=== PATIENT | female | born 1945 | race Caucasian/White ===

== ENCOUNTER → 2017-09-24 12:48 | Outpatient (CLI) | payer MEDICARE, OTHER, SELFPAY ==
--- NOTE | 2017-09-24 | DI.US.S_ITS ---
PROCEDURE: US ABDOMEN COMPLETE INDICATIONS: UPPER ABDOMEN PAIN TECHNIQUE: Real-time scanning was performed of the abdominal and retroperitoneal organs, with image documentation. COMPARISON: None. FINDINGS: Liver: Liver is normal in size and homogeneous in echotexture. 2 simple liver cysts are identified, one in the anteromedial left lobe measuring 21 x 23 x 30 mm and one in the anterior superior right lobe measuring 11 mm. Gallbladder: Gallbladder is clear with normal wall thickness. Biliary ducts: Intrahepatic bile ducts are non-dilated. Extrahepatic bile duct caliber measures 5 mm. Normal is 6-7 mm or less in diameter, or 10 mm or less post-cholecystectomy. Pancreas: Visualized portions of the pancreas are sonographically normal. Tail is obscured. Spleen: Spleen is normal in size and homogeneous in echotexture. Kidneys: Kidneys are normal in size and echotexture. Right kidney measures 9.6 cm long; left kidney measures 11.5 cm long. No hydronephrosis or nephrolithiasis. No solid masses. Aorta: Visualized aorta is normal in caliber at less than 3 cm. Iliacs: Proximal common iliac arteries are normal in caliber at less than 2.5 cm. IVC: Nonvisualized Miscellaneous: No free abdominal fluid. IMPRESSION: 1. No acute abnormality. 2 simple cysts in the liver. Tail of pancreas and inferior vena cava obscured by bowel gas. Dictated by: Bhaskar Irvin M.D. on 09/24/2017 at 14:15 Approved by: Bhaskar Irvin M.D. on 09/24/2017 at 14:18
== END ==
PROVIDERS: PCP Family Medicine; Visit Provider Family Medicine
DX: R10.10 Upper abdominal pain, unspecified (principal); K76.9 Liver disease, unspecified
CPT/HCPCS: 76700

== ENCOUNTER → 2019-01-30 11:39 | Outpatient (CLI) | payer MEDICARE, OTHER, SELFPAY ==
--- NOTE | 2019-01-30 | DI.US.S_ITS ---
PROCEDURE: US THYROID INDICATIONS: OTHER SPECIFIED DISORDERS OF THYROID TECHNIQUE: Real-time scanning was performed of the thyroid gland, with image documentation. COMPARISON: None. FINDINGS: Right: Thyroid lobe measures 4 x 1.2 x 1.2 cm. Left: Thyroid lobe measures 3.3 x 0.9 x 1.1 cm, and is homogenous in echotexture. Isthmus: 3 mm thick. Nodule number: 1 Location: Right mid thyroid laterally Size: 0.6 x 0.4 0.3 cm. Composition: Cystic and solid Echogenicity: Hypoechoic Shape: wider than tall. Margins: Smooth Echogenic foci: Potential punctate calcifications, as on image 11. Total points: 7 ACR TI-RADS category: 5, highly suspicious. Annual followup is recommended for 5 years. IMPRESSION: There is a 6 mm nodule seen involving the right thyroid, for which followup is recommended in one year. ACR TI-RADS definitions and recommendations: TI-RADS 1 (benign): 0 points. FNA not needed. TI-RADS 2 (not suspicious): 2 points. FNA not needed. TI-RADS 3 (mildly suspicious): 3 points. * FNA if 2.5 cm or larger, follow up if 1.5 cm or larger (at 1, 3, and 5 years). TI-RADS 4 (moderately suspicious): 4-6 points. * FNA if 1.5 cm or larger, follow up if 1 cm or larger (at 1, 2, 3, and 5 years). TI-RADS 5 (highly suspicious): 7 points or more. * FNA if 1 cm or larger, follow up if 0.5 cm or larger (every year for 5 years). Dictated by: George Irwin M.D. on 01/30/2019 at 13:05 Approved by: George Irwin M.D. on 01/30/2019 at 13:08
== END ==
PROVIDERS: PCP Family Medicine; Visit Provider Family Medicine
DX: E04.1 Nontoxic single thyroid nodule (principal)
CPT/HCPCS: 76536

== ENCOUNTER → 2020-09-11 11:06 | Outpatient (CLI) | payer MEDICARE, OTHER, SELFPAY ==
[2020-09-11 13:26] LABS: COVID-19 CEPHEID PCR (VTM/NP) Negative (Negative)
== END ==
PROVIDERS: PCP Family Medicine; Visit Provider Physician Assistant
DX: Z20.822 Contact with and (suspected) exposure to COVID-19 (principal)
CPT/HCPCS: C9803; U0003

== ENCOUNTER → 2020-10-25 14:01 | Outpatient (CLI) | payer MEDICARE, OTHER, SELFPAY | PROVIDERS: PCP Family Medicine; Referring Provider Internal Medicine Medical Oncology; Visit Provider Internal Medicine Medical Oncology | DX: C50.912 Malignant neoplasm of unspecified site of left female breast (principal); Z17.0 Estrogen receptor positive status [ER+]; Z78.0 Asymptomatic menopausal state; M06.9 Rheumatoid arthritis, unspecified; M45.9 Ankylosing spondylitis of unspecified sites in spine; Z79.818 Long term (current) use of other agents affecting estrogen receptors and estrogen levels; Z90.722 Acquired absence of ovaries, bilateral; Z82.62 Family history of osteoporosis | CPT/HCPCS: 77080 ==

== ENCOUNTER → 2020-11-23 11:22 | Outpatient (CLI) | payer MEDICARE, OTHER, SELFPAY ==
[2020-11-23 20:24] LABS: Alanine Aminotransferase 18 IU/L (<35); Albumin 3.7 g/dL (3.5-5.0); Albumin Globulin Ratio 1.3 (1.0-2.8); Alkaline Phosphatase 84 U/L (38-126); Aspartate Aminotransferase 26 IU/L (14-36); BUN Creatinine Ratio 19.7 (6-22); Bilirubin Total 0.7 mg/dL (0.2-1.3); Blood Urea Nitrogen 13 mg/dL (7-17); Calcium 9.3 mg/dL (8.4-10.2); Carbon Dioxide 30 mmol/L (22-32); Chloride 102 mmol/L (98-107); Cholesterol 147 mg/dL (140-199); Estimated Glomerular Filt Rate > 60.0 mL/min (>60); Globulin 2.8 g/dL (1.7-4.1); Glucose 107 mg/dL (80-110); HDL Cholesterol 65 mg/dL (40-60); HEMOLYSIS 29 (0-50); LDL Cholesterol Calculated 70 mg/dL (<100); Potassium 4.1 mmol/L (3.4-5.1); Sodium 139 mmol/L (137-145); Total Protein 6.5 g/dL (6.3-8.2); Triglycerides 59 mg/dL (35-150)
== END ==
PROVIDERS: PCP Family Medicine; Visit Provider Physician Assistant
DX: E78.5 Hyperlipidemia, unspecified (principal); I10 Essential (primary) hypertension; E87.6 Hypokalemia
CPT/HCPCS: 80053; 80061

== ENCOUNTER → 2020-12-16 12:28 | Outpatient (CLI) | payer MEDICARE, OTHER, SELFPAY ==
[2020-12-16 21:23] LABS: COVID19 - ORCAS (NP or Nasal) Negative (Negative)
== END ==
PROVIDERS: PCP Family Medicine; Referring Provider Family Medicine; Visit Provider Family Medicine
DX: R19.7 Diarrhea, unspecified (principal); R50.9 Fever, unspecified; Z20.822 Contact with and (suspected) exposure to COVID-19
CPT/HCPCS: U0003

== ENCOUNTER → 2021-02-11 13:32 | Outpatient (CLI) | payer MEDICARE, OTHER, SELFPAY ==
[2021-02-11 20:07] LABS: Add Manual Diff / Slide Review NO; Basophils Absolute Auto 100 /uL (0-100); Basophils Percent Auto 0.9 % (0-2); Eosinophils Absolute Auto 100 /uL (0-450); Eosinophils Percent Auto 1.5 % (2-4); Hematocrit 45.2 % (36-46); Hemoglobin 14.7 g/dL (12.0-16.0); Lymphocytes Absolute Auto 1800 /uL (1100-4500); Lymphocytes Percent Auto 29.1 % (25-40); Mean Corpuscular HGB Conc 32.5 % (30-36); Mean Corpuscular Hemoglobin 28.6 PG (26-34); Monocytes Absolute Auto 400 /uL (0-900); Monocytes Percent Auto 6.4 % (3-14); Neutrophils Absolute Auto 3900 /uL (1500-7000); Neutrophils Percent Auto 62.1 % (50-75); Platelet Count 239 X10^3/uL (150-400); Red Blood Cell Count 5.14 X10^6/uL (4.0-5.2); Red Cell Distribution Width 15.2 % (11.6-14.8); White Blood Cell Count 6.3 X10^3/uL (4.5-11.0)
[2021-02-11 20:21] LABS: Alanine Aminotransferase 15 IU/L (<35); Albumin Globulin Ratio 1.4 (1.0-2.8); Alkaline Phosphatase 94 U/L (38-126); Aspartate Aminotransferase 24 IU/L (14-36); BUN Creatinine Ratio 22.2 (6-22); Bilirubin Total 0.5 mg/dL (0.2-1.3); Blood Urea Nitrogen 16 mg/dL (7-17); C-Reactive Protein Quant < 0.5 mg/dL (<1.0); Calcium 9.6 mg/dL (8.4-10.2); Carbon Dioxide 29 mmol/L (22-32); Chloride 100 mmol/L (98-107); Estimated Glomerular Filt Rate > 60.0 mL/min (>60); Globulin 2.8 g/dL (1.7-4.1); Glucose 106 mg/dL (80-110); HEMOLYSIS < 15 (0-50); Sodium 138 mmol/L (137-145); Total Protein 6.8 g/dL (6.3-8.2)
[2021-02-11 20:28] LABS: Erythrocyte Sedimentation Rate 2 MM/HR (0-20)
== END ==
PROVIDERS: PCP Family Medicine; Visit Provider Internal Medicine Rheumatology
DX: M06.09 Rheumatoid arthritis without rheumatoid factor, multiple sites (principal)
CPT/HCPCS: 80053; 85025; 85651; 86140

== ENCOUNTER → 2021-07-25 12:41 | Outpatient (CLI) | payer MEDICARE, OTHER, SELFPAY ==
--- NOTE | 2021-07-25 12:44 | DI.MRI.S_ITS ---
PROCEDURE: MR SHOULDER LT WO CON INDICATIONS: Progressive bilateral shoulder pain adhesive capsulitis TECHNIQUE: Noncontrast oblique coronal T2 fast spin echo with fat saturation, oblique sagittal T1 spin echo and T2 fast spin echo with fat saturation, axial T1 spin echo and T2 fast spin echo with fat saturation through the shoulder. COMPARISON: [facility] ([place]), CR, XR SHOULDER LT MIN 2V, 07/15/2021, 12:26. FINDINGS: Image quality: Excellent. Rotator cuff: Moderate to severe supraspinatus and infraspinatus tendinosis with multiple small foci of low grade intrasubstance tearing. The teres minor and subscapularis tendons are intact there is no significant rotator cuff muscle atrophy. Bones and bursae: No acute trabecular bone injury. Small chronic traction cystic changes are seen in the posterosuperior humeral head. Mild cartilage thinning is seen in the glenohumeral joint. Moderate degenerative changes are seen in the acromioclavicular joint with subchondral cystic changes and small marginal osteophytes. There is a small subacromial/subdeltoid bursal effusion. A paucity of glenohumeral joint fluid is seen. Capsule and soft tissues: The glenoid labrum appears mildly diminutive and irregular, most likely secondary to chronic degeneration and degenerative tearing. Moderate tendinosis of the proximal biceps long head tendon. There is effacement of the normal fat signal in the rotator interval. The inferior glenohumeral ligament is mildly thickened. IMPRESSION: 1. Moderate to severe supraspinatus and infraspinatus tendinosis with multiple small foci of low grade intrasubstance tearing at the distal insertions. 2. Diffuse labral degeneration and chronic degenerative tearing. 3. Moderate biceps long head tendinosis. 4. Small subacromial/subdeltoid bursal effusion or bursitis. 5. Effacement of the rotator interval fat and mild thickening of the inferior glenohumeral ligament are nonspecific, but can be seen in the setting of the clinical syndrome of adhesive capsulitis. Dictated by: Dallas Higgins M.D. on 07/25/2021 at 16:02 Approved by: Dallas Higgins M.D. on 07/25/2021 at 16:09
--- NOTE | 2021-07-25 12:44 | DI.MRI.S_ITS ---
PROCEDURE: MR SHOULDER RT WO CON INDICATIONS: Bilateral shoulder adhesive capsulitis TECHNIQUE: Noncontrast oblique coronal T2 fast spin echo with fat saturation, oblique sagittal T1 spin echo and T2 fast spin echo with fat saturation, axial T1 spin echo and T2 fast spin echo with fat saturation through the shoulder. COMPARISON: [facility] ([place]), CR, XR SHOULDER RT MIN 2V, 07/15/2021, 12:12. FINDINGS: Image quality: Excellent. Rotator cuff: There is mild to moderate supraspinatus and infraspinatus tendinosis. Superimposed high-grade intrasubstance and likely bursal surface tearing of the distal infraspinatus tendon is seen measuring 1.1 cm in anterior-posterior dimension. A few articular sided fibers appear to remain in continuity. The teres minor tendon is intact. Mild subscapularis tendinosis. There is no significant atrophy of the rotator cuff musculature. Bones and bursae: No acute trabecular bone injury. Chronic traction cystic changes are seen at the posterosuperior humeral head. No definite focal cartilage defect is seen in the glenohumeral joint, although there is a paucity of glenohumeral joint fluid. Moderate degenerative changes are seen at the acromioclavicular joint with subchondral cystic changes and small marginal osteophytes. A small subacromial/subdeltoid bursal effusion or bursal thickening is seen. Capsule and soft tissues: Small nondisplaced tear at the anteroinferior labrum with a 3 mm paralabral cyst. The labrum otherwise appears to be intact. The proximal biceps long head tendon is intact. There is partial effacement of the normal fat in the rotator interval. The anterior band of the inferior glenohumeral ligament is borderline in thickness. IMPRESSION: 1. High-grade partial intrasubstance and bursal surface tearing of the infraspinatus tendon at its footprint superimposed on mild to moderate infraspinatus and supraspinatus tendinosis. The tear measures approximately 1.1 cm in anterior-posterior dimension. A few attenuated articular sided fibers appear to remain in continuity. 2. Mild subscapularis tendinosis. 3. Small nondisplaced tear at the anteroinferior labrum with a 3 mm paralabral cyst. 4. Moderate acromioclavicular joint osteoarthrosis. 5. Small subacromial/subdeltoid bursal effusion or bursitis. 6. Mild partial effacement of the rotator interval fat and borderline thickening of the inferior glenohumeral ligament with a paucity of glenohumeral joint fluid are nonspecific findings, but can be seen in the setting of the clinical syndrome of adhesive capsulitis. Dictated by: Dallas Higgins M.D. on 07/25/2021 at 15:56 Approved by: Dallas Higgins M.D. on 07/25/2021 at 16:02
--- NOTE | 2021-07-25 12:44 | DI.MRI.S_ITS ---
PROCEDURE: MR LUMBAR SPINE WO CON INDICATIONS: Progressive localized pain and discomfort with radiculopathy TECHNIQUE: Noncontrast sagittal T1 spin echo and T2 fast echo, sagittal STIR, axial T1 and T2 fast spin echo through the lumbar spine. In cases with scoliosis, additional coronal T2 fast spin echo may be performed. COMPARISON: [facility], MR, L-SPINE WITHOUT CONTRAST, 09/19/2007, 12:49. [facility], MR, L-SPINE WITHOUT CONTRAST, 08/08/2017, 10:47. [facility] ([place]), CR, XR LUMBAR SPINE 2-3V, 07/15/2021, 12:12. FINDINGS: Image quality: Excellent. Alignment and Curvature: There is [id number] dextroconvex lumbar scoliosis. There is minimal retrolisthesis seen at L1-L2, L2-L3, L3-L4, and L5-S1. Bone Marrow: Marrow is of normal overall signal. No acute vertebral body compression fractures. Anterior wedge deformity is seen involving L1, with approximately 50% loss of height, which appears progressed compared to 2018, yet without acute features. Spinal Cord: Conus medullaris terminates at the L1 level. Visualized cord demonstrates normal signal and size. Paraspinous Soft Tissues: No paravertebral masses. T11-T12: Moderate loss of disc height is seen on the right side. There is loss of disc signal. Mild to moderate disc bulge is seen, with a central/right disc protrusion, as on series 6, image 3. Mild to moderate central canal narrowing is seen. There is moderate to severe right-sided and moderate left-sided neural foraminal narrowing. These imaging findings have progressed compared to the prior study. T12-L1: Mild loss of disc height is seen. Loss of disc signal is seen. Minimal to mild disc bulge is seen at this level. There is moderate left-sided and no significant right-sided neural foraminal narrowing. Minimal central canal narrowing is seen. When comparison is made with the prior images, these findings are similar. L1-L2: Moderate loss of disc height is seen. Loss of disc signal is seen. Moderate generalized disc bulge is seen. Mild to moderate facet hypertrophy is seen. There is at least moderate left-sided and mild right-sided neural foraminal narrowing. Mild central canal narrowing is seen. When comparison is made with the prior images, these findings are similar. L2-L3: Moderate loss of disc height is seen. Loss of disc signal is seen. Reactive marrow endplate changes are seen, which are hyperintense on T1-weighted and T2-weighted imaging and most consistent with fatty metaplasia (Modic type II changes). Mild to moderate disc bulge is seen. Mild to moderate facet hypertrophy can be seen at this level. Moderate bilateral neural foraminal narrowing can be seen, right worse than left. Mild to moderate central canal narrowing is seen. When comparison is made with the prior images, these findings are similar. L3-L4: At least moderate loss of disc height and disc signal can be seen. Reactive marrow endplate changes are seen, which are hyperintense on T1-weighted and T2-weighted imaging and most consistent with fatty metaplasia (Modic type II changes). Mild to moderate disc bulge is seen, which is eccentric to the right. Mild to moderate facet hypertrophy is seen. At least moderate bilateral neural foraminal narrowing can be seen. Mild to moderate central canal narrowing is seen. When comparison is made with the prior images, these findings are similar. L4-L5: The disc height is well-preserved. Loss of disc signal is seen at this level. Mild to moderate disc bulge is seen, which is eccentric to the right. There is at least moderate right-sided and mild left-sided facet hypertrophy. There is at least moderate right-sided and mild left-sided neural foraminal narrowing. No significant central canal narrowing is seen. When comparison is made with the prior images, these findings are similar. L5-S1: Moderate loss of disc height is seen. Loss of disc signal is seen. Mild to moderate disc bulge is seen, which is eccentric to the right. Mild to moderate facet hypertrophy is seen. There is moderate to severe right-sided neural foraminal narrowing, with a degree of compression seen upon the exiting right L5 nerve root. Moderate left-sided neural foraminal narrowing is seen. Minimal central canal narrowing is seen. These imaging findings have progressed compared to the prior study. 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 IMPRESSION: Multiple levels of lumbar spine degenerative change are seen, which are progressed at T11-T12 and L5-S1 compared to 2018. Dictated by: George Irwin M.D. on 07/25/2021 at 16:14 Approved by: George Irwin M.D. on 07/25/2021 at 16:22
== END ==
PROVIDERS: PCP Family Medicine; Referring Provider Family Medicine; Visit Provider Family Medicine
DX: M75.02 Adhesive capsulitis of left shoulder (principal); M75.112 Incomplete rotator cuff tear or rupture of left shoulder, not specified as traumatic; M75.111 Incomplete rotator cuff tear or rupture of right shoulder, not specified as traumatic; M19.011 Primary osteoarthritis, right shoulder; M75.01 Adhesive capsulitis of right shoulder; S43.491A Other sprain of right shoulder joint, initial encounter; M47.24 Other spondylosis with radiculopathy, thoracic region; M47.27 Other spondylosis with radiculopathy, lumbosacral region; M47.26 Other spondylosis with radiculopathy, lumbar region; M25.512 Pain in left shoulder; M25.511 Pain in right shoulder; G89.29 Other chronic pain
CPT/HCPCS: 72148; 73221

== ENCOUNTER → 2022-03-30 13:48 | Outpatient (CLI) | payer MEDICARE, OTHER, SELFPAY ==
[2022-03-30 20:00] LABS: Add Manual Diff / Slide Review NO; Basophils Absolute Auto 100 /uL (0-100); Basophils Percent Auto 0.7 % (0-2); Eosinophils Absolute Auto 100 /uL (0-450); Eosinophils Percent Auto 0.5 % (2-4); Hematocrit 47.4 % (36-46); Lymphocytes Absolute Auto 1900 /uL (1100-4500); Lymphocytes Percent Auto 16.8 % (25-40); Mean Corpuscular HGB Conc 33.8 % (30-36); Mean Corpuscular Hemoglobin 29.8 PG (26-34); Mean Corpuscular Volume 88.3 fL (80-100); Monocytes Absolute Auto 600 /uL (0-900); Monocytes Percent Auto 5.7 % (3-14); Neutrophils Absolute Auto 8700 /uL (1500-7000); Neutrophils Percent Auto 76.3 % (50-75); Platelet Count 240 X10^3/uL (150-400); Red Blood Cell Count 5.37 X10^6/uL (4.0-5.2); Red Cell Distribution Width 14.9 % (11.6-14.8); White Blood Cell Count 11.4 X10^3/uL (4.5-11.0)
[2022-03-30 20:08] LABS: Alanine Aminotransferase 22 IU/L (<35); Albumin 4.8 g/dL (3.5-5.0); Albumin Globulin Ratio 1.3 (1.0-2.8); Alkaline Phosphatase 102 U/L (38-126); Aspartate Aminotransferase 29 IU/L (14-36); BUN Creatinine Ratio 25.9 (6-22); Bilirubin Total 0.8 mg/dL (0.2-1.3); Blood Urea Nitrogen 14 mg/dL (7-17); C-Reactive Protein Quant < 0.5 mg/dL (<1.0); Calcium 9.3 mg/dL (8.4-10.2); Carbon Dioxide 28 mmol/L (22-32); Chloride 97 mmol/L (98-107); Estimated Glomerular Filt Rate > 60 mL/min (>60); Globulin 3.6 g/dL (1.7-4.1); Glucose 106 mg/dL (80-110); Potassium 4.4 mmol/L (3.4-5.1); Sodium 136 mmol/L (137-145); Total Protein 8.4 g/dL (6.3-8.2)
[2022-03-30 20:30] LABS: HEMOLYSIS 74 (0-50)
[2022-03-30 21:01] LABS: Erythrocyte Sedimentation Rate 2 MM/HR (0-20)
== END ==
PROVIDERS: PCP Family Medicine; Visit Provider Physician Assistant
DX: M05.79 Rheumatoid arthritis with rheumatoid factor of multiple sites without organ or systems involvement (principal)
CPT/HCPCS: 80053; 85025; 85651; 86140

== ENCOUNTER → 2022-12-13 13:50 | Outpatient (CLI) | payer MEDICARE, OTHER, SELFPAY ==
[2022-12-13 19:48] LABS: BUN Creatinine Ratio 24.6 (6-22); Blood Urea Nitrogen 14 mg/dL (7-17); Calcium 8.7 mg/dL (8.4-10.2); Carbon Dioxide 28 mmol/L (22-32); Chloride 100 mmol/L (98-107); Cholesterol 141 mg/dL (140-199); Estimated Glomerular Filt Rate > 60 mL/min (>60); Glucose 100 mg/dL (80-110); HDL Cholesterol 54 mg/dL (40-60); HEMOLYSIS 29 (0-50); LDL Cholesterol Calculated 69 mg/dL (<100); Sodium 136 mmol/L (137-145); Triglycerides 89 mg/dL (35-150)
[2022-12-13 19:54] LABS: Add Manual Diff / Slide Review NO; Basophils Absolute Auto 0 /uL (0-100); Basophils Percent Auto 0.2 % (0-2); Eosinophils Absolute Auto 100 /uL (0-450); Eosinophils Percent Auto 1.5 % (2-4); Hematocrit 41.8 % (36-46); Hemoglobin 14.1 g/dL (12.0-16.0); Lymphocytes Absolute Auto 1300 /uL (1100-4500); Lymphocytes Percent Auto 19.8 % (25-40); Mean Corpuscular HGB Conc 33.8 % (30-36); Mean Corpuscular Hemoglobin 29.3 PG (26-34); Mean Corpuscular Volume 86.7 fL (80-100); Monocytes Absolute Auto 500 /uL (0-900); Monocytes Percent Auto 7.7 % (3-14); Neutrophils Absolute Auto 4500 /uL (1500-7000); Neutrophils Percent Auto 70.8 % (50-75); Platelet Count 244 X10^3/uL (150-400); Red Blood Cell Count 4.82 X10^6/uL (4.0-5.2); Red Cell Distribution Width 15.4 % (11.6-14.8); White Blood Cell Count 6.3 X10^3/uL (4.5-11.0)
[2022-12-13 20:15] LABS: TSH w/ Reflex to FT4 0.91 uIU/mL (0.47-4.68)
== END ==
PROVIDERS: PCP Family Medicine; Visit Provider Family Medicine
DX: E78.5 Hyperlipidemia, unspecified (principal); Z68.35 Body mass index [BMI] 35.0-35.9, adult; K52.831 Collagenous colitis; I10 Essential (primary) hypertension; M06.9 Rheumatoid arthritis, unspecified
CPT/HCPCS: 80048; 80061; 84443; 85025

== ENCOUNTER → 2023-01-03 10:13 | Outpatient (CLI) | payer MEDICARE, OTHER, SELFPAY ==
--- NOTE | 2023-01-03 10:15 | DI.RAD.S_ITS ---
Bone Density Report Name: ROSIO VICENTE Age: 77 Sex: Female Ethnicity: White Date of : 1945 Indication: postmenopausal; screening for osteoporosis; prior fracture; Referring Provider: JON CASTILLO Study: Bone densitometry was performed. Exam Date: January 03, 2023 Accession number: [id number] Bone Density: Region BMD T-score Z-score Classification AP Spine(L1, L2, L3) 1.335 2.9 5.3 Normal Femoral Neck (Left) 0.816 -0.3 1.9 Normal Total Hip (Left) 0.982 0.3 2.2 Normal Femoral Neck (Right) 0.821 -0.3 1.9 Normal Total Hip (Right) 0.987 0.4 2.3 Normal Total Hip Mean 0.984 0.4 2.3 Normal World Health Organization criteria for BMD impression classify patients as: Normal (T-score at or above -1.0), Osteopenia (T-score between -1.0 and -2.5), or Osteoporosis (T-score at or below -2.5). 10-year Fracture Risk: FRAX not reported because: All T-scores for Spine Total, Hip Total, Femoral Neck at or above -1.0 Prior hip or vertebral fracture Previous Exams: -- Region Exam Age BMD T-score BMD Change BMD Change Date g/cm2 vs Baseline vs Previous -- AP Spine (L1-L3) 01/03/2023 77 1.335 2.9 -0.154 (-10.3%)# -0.154 (-10.3%)# 10/25/2020 75 1.489 4.3 Total Hip(Left) 01/03/2023 77 0.982 0.3 -0.040 (-3.9%)# -0.040 (-3.9%)# 10/25/2020 75 1.022 0.7 Total Hip(Right) 01/03/2023 77 0.987 0.4 -0.030 (-3.0%)# -0.030 (-3.0%)# 10/25/2020 75 1.017 0.6 -- *Denotes significance at 95% confidence level, LSC for AP Spine = 0.022 g/cm2, LSC for Total Hip = 0.027 g/cm2 # Denotes dissimilar scan types or analysis methods Impression: The patient has normal bone mass. The patient has risk factors, including: previous fracture. No significant bone loss was observed. Discussion: INCREASED RISK OF FRACTURE DUE TO HISTORY OF FRACTURE. The patient's previous fracture puts the patient at high risk of a future fracture. In untreated patients, the risk of osteoporotic fracture increases approximately two-fold for each 1.0 SD decrease in T-score. Low bone density is not the only risk factor for fracture; also consider factors such as patient's age, frailty or poor health, risk of falling, risk of injury, previous osteoporotic fracture, family history of osteoporosis, cigarette smoking, low body weight, etc. Not everyone with a low trauma fracture has osteoporosis; osteomalacia and other metabolic bone disorders should also be considered. Patients who have osteoporosis should be evaluated for specific diseases and conditions (secondary causes) that may cause or contribute to bone loss and fracture risk. National Osteoporosis Foundation (NOF) recommends pharmacologic intervention for patients with a prior hip or vertebral fracture regardless of BMD T-score. The patient should follow a healthful lifestyle (good nutrition with adequate calcium and vitamin D, and appropriate weight-bearing exercise). Follow-Up: Consider a repeat BMD and Vertebral Fracture Assessment (VFA) exam in 2 years or sooner if medically necessary, to reassess this patient's status. Reported by: MEHDI JOHNSTON MD on 01/03/2023 10:45:00 AM.
--- NOTE | 2023-01-03 10:19 | DI.CT.S_ITS ---
PROCEDURE: CT HEAD/BRAIN WO CON INDICATIONS: Head injury with persistent AKHTAR and dizziness TECHNIQUE: Noncontrast 4.5 mm thick angled axial sections acquired from the foramen magnum to the vertex, with coronal and sagittal reformats. For radiation dose reduction, the following was used: automated exposure control, adjustment of mA and/or kV according to patient size. COMPARISON: None. FINDINGS: Image quality: Excellent. CSF spaces: Basal cisterns are patent. No extra-axial fluid collections. The ventricles are symmetric in size and shape. Brain: No intracranial bleeds or masses. There is cerebral volume loss for age, with resultant ventricular and sulcal prominence. There are periventricular and deep white matter chronic small vessel ischemic changes. There is intracranial internal carotid artery atherosclerosis. Skull and face: Calvarium and visualized facial bones appear intact, without suspicious lesions. Sinuses: Visualized sinuses and mastoids are clear. IMPRESSION: Unremarkable noncontrast head CT for age, without findings of acute intracranial hemorrhage or other acute intracranial abnormality. Dictated by: George Irwin M.D. on 01/03/2023 at 9:44 Approved by: George Irwin M.D. on 01/03/2023 at 9:45
== END ==
PROVIDERS: PCP Family Medicine; Referring Provider Family Medicine; Visit Provider Family Medicine
DX: R51.9 Headache, unspecified; I65.29 Occlusion and stenosis of unspecified carotid artery; R42 Dizziness and giddiness; R26.89 Other abnormalities of gait and mobility; M81.0 Age-related osteoporosis without current pathological fracture; Z78.0 Asymptomatic menopausal state; S32.029A Unspecified fracture of second lumbar vertebra, initial encounter for closed fracture; S32.019A Unspecified fracture of first lumbar vertebra, initial encounter for closed fracture; M06.9 Rheumatoid arthritis, unspecified
CPT/HCPCS: 70450; 77080

== ENCOUNTER → 2023-03-29 10:52 | Outpatient (CLI) | payer MEDICARE, OTHER, SELFPAY ==
--- NOTE | 2023-03-29 10:56 | DI.MRI.S_ITS ---
PROCEDURE: MR LUMBAR SPINE WO CON INDICATIONS: scoliosis back pain with radiation TECHNIQUE: Noncontrast sagittal T1 spin echo and T2 fast echo, sagittal STIR, and T2 fast spin echo through the lumbar spine. In cases with scoliosis, additional coronal T2 fast spin echo may be performed. COMPARISON: [facility], MR, MR LUMBAR SPINE WO CON, 07/25/2021, 13:59. FINDINGS: Image quality: Excellent. Alignment and Curvature: There is rightward scoliotic curvature with apex at L2. Multilevel trace retrolisthesis is present. Bone Marrow: Marrow is of normal overall signal. No acute vertebral body compression fractures. Unchanged L1 compression deformity. Spinal Cord: Conus medullaris terminates at the L1-2 level. Visualized cord demonstrates normal signal and size. Tarlov cysts are noted at the level the sacral spine. Paraspinous Soft Tissues: No paravertebral masses. Discs: Multilevel moderate to severe disc desiccation is present. T12-L1: Mild disc bulge with right posterior paracentral protrusion. Mild to moderate spinal stenosis. Moderate bilateral foraminal narrowing with facet and ligamentum flavum hypertrophy. No interval change. L1-L2: Mild disc bulge with superimposed left posterior paracentral protrusion slightly more prominent. Mild spinal stenosis. Moderate left and mild right foraminal narrowing with facet and ligamentum flavum hypertrophy, stable. L2-L3: Mild disc bulge with [id number]-[id number] spinal stenosis. Moderate bilateral foraminal narrowing, right greater than left with facet and ligamentum flavum hypertrophy. No interval change. L3-L4: Mild disc bulge with nvlb-gh-rophzghk spinal stenosis. There is moderate bilateral foraminal narrowing with facet and ligamentum flavum hypertrophy. Overall appearance is stable compared to prior exam. L4-L5: Mild disc bulge with out spinal stenosis. Moderate to severe right and mild left foraminal narrowing with facet and ligamentum flavum hypertrophy. No interval change. L5-S1: Mild disc bulge with minimal spinal stenosis. Severe right and moderate left foraminal narrowing with facet and ligamentum flavum hypertrophy slightly progressive on the right. There is mild compression of the exiting right L5 nerve roots, minimally progressive. IMPRESSION: Multilevel degenerative changes with slight interval progression as above. Most prominent foraminal narrowing is at L5-S1 with flattening of the exiting right L5 nerve root secondary to facet/ligamentum flavum arthropathy. Dictated by: Do Goode M.D. on 03/29/2023 at 15:42 Approved by: Do Goode M.D. on 03/29/2023 at 15:52
== END ==
PROVIDERS: PCP Family Medicine; Referring Provider Family Medicine; Visit Provider Family Medicine
DX: M54.41 Lumbago with sciatica, right side (principal); M54.42 Lumbago with sciatica, left side; M47.816 Spondylosis without myelopathy or radiculopathy, lumbar region; M47.817 Spondylosis without myelopathy or radiculopathy, lumbosacral region; M48.07 Spinal stenosis, lumbosacral region; M41.9 Scoliosis, unspecified; G89.29 Other chronic pain
CPT/HCPCS: 72148

== ENCOUNTER → 2023-06-26 11:01 | Outpatient (CLI) | payer MEDICARE, OTHER, SELFPAY ==
[2023-06-26 19:29] LABS: HEMOLYSIS < 15 (0-50); Iron 112 ug/dL (37-170)
[2023-06-26 19:48] LABS: Percent Iron Saturation 28 % (15-50); Total Iron Binding Capacity 395 ug/dL (265-497); Transferrin 324 mg/dL (206-381)
== END ==
PROVIDERS: PCP Family Medicine; Visit Provider Family Medicine
DX: G25.81 Restless legs syndrome (principal)
CPT/HCPCS: 83540; 83550

== ENCOUNTER → 2023-10-18 11:23 | Outpatient (CLI) | payer MEDICARE, OTHER, SELFPAY ==
--- NOTE | 2023-10-18 11:25 | DI.MRI.S_ITS ---
PROCEDURE: MR HEAD/BRAIN WO/W CON INDICATIONS: imbalance falls concussion TECHNIQUE: Noncontrast axial T1 spin echo, axial T2 fast spin echo, sagittal and axial FLAIR, coronal T2 fast spin echo, axial gradient echo, axial diffusion and ADC through the brain. After the administration of contrast, axial and coronal and sagittal T1 spin echo with fat saturation through the brain. COMPARISON: None. FINDINGS: Image quality: Excellent. CSF spaces: Basal cisterns are patent. No extra-axial fluid collections. Ventricles are normal in size and shape. Brain: No midline shift. No intracranial bleeds or masses. No abnormal intracranial enhancement. There is cerebral volume loss for age. There is periventricular white matter chronic small vessel ischemic change. The brainstem appears normal. Diffusion-weighted images demonstrate no acute infarct. No chronic ischemic insults. Normal intravascular flow voids are present. Skull and face: Calvarial marrow is normal in signal. Orbits appear normal. Note is made of bilateral lens replacements. Sinuses: Sinuses and mastoids appear clear. IMPRESSION: No imaging explanation is found for this patient's presenting symptoms. Note is made of age-appropriate brain parenchymal volume loss and chronic small vessel ischemic changes. No masses or abnormal enhancement can be seen. No findings of acute or subacute infarction can be seen. No prior territorial infarct can be seen. Dictated by: George Irwin M.D. on 10/18/2023 at 12:25 Approved by: George Irwin M.D. on 10/18/2023 at 12:26
== END ==
LOC: MRI 11:24
PROVIDERS: PCP Family Medicine; Referring Provider Family Medicine; Visit Provider Family Medicine
DX: R29.898 Other symptoms and signs involving the musculoskeletal system (principal); S06.0XAA Concussion with loss of consciousness status unknown, initial encounter; W19.XXXA Unspecified fall, initial encounter; R26.89 Other abnormalities of gait and mobility
CPT/HCPCS: 70553; A9579

== ENCOUNTER → 2024-01-03 14:21 | Outpatient (CLI) | payer MEDICARE, OTHER, SELFPAY | PROVIDERS: PCP Family Medicine; Visit Provider Physician Assistant Medical | DX: S41.109A Unspecified open wound of unspecified upper arm, initial encounter (principal) | CPT/HCPCS: 87070; 87075; 87205 ==

== ENCOUNTER → 2024-01-07 09:12 | Outpatient (CLI) | payer MEDICARE, OTHER, SELFPAY ==
[2024-01-07 09:41] LABS: Add Manual Diff / Slide Review NO; Basophils Absolute Auto 100 /uL (0-100); Basophils Percent Auto 1.2 % (0-2); Eosinophils Absolute Auto 0 /uL (0-450); Eosinophils Percent Auto 1.1 % (2-4); Hemoglobin 14.6 g/dL (12.0-16.0); Lymphocytes Absolute Auto 1200 /uL (1100-4500); Lymphocytes Percent Auto 26.4 % (25-40); Mean Corpuscular HGB Conc 33.3 % (30-36); Mean Corpuscular Hemoglobin 29.9 PG (26-34); Mean Corpuscular Volume 89.9 fL (80-100); Monocytes Absolute Auto 400 /uL (0-900); Monocytes Percent Auto 8.6 % (3-14); Neutrophils Absolute Auto 3000 /uL (1500-7000); Neutrophils Percent Auto 62.7 % (50-75); Platelet Count 253 X10^3/uL (150-400); Red Cell Distribution Width 14.4 % (11.6-14.8); White Blood Cell Count 4.7 X10^3/uL (4.5-11.0)
[2024-01-07 10:15] LABS: BUN Creatinine Ratio 19.4 (6-22); Blood Urea Nitrogen 14 mg/dL (7-17); Calcium 9.4 mg/dL (8.4-10.2); Carbon Dioxide 26 mmol/L (22-32); Chloride 104 mmol/L (98-107); Cholesterol 146 mg/dL (140-199); Estimated Glomerular Filt Rate > 60 mL/min (>60); Glucose 121 mg/dL (80-110); HDL Cholesterol 73 mg/dL (40-60); HEMOLYSIS < 15 (0-50); LDL Cholesterol Calculated 58 mg/dL (<100); Potassium 3.8 mmol/L (3.4-5.1); Sodium 137 mmol/L (137-145); Triglycerides 74 mg/dL (35-150)
[2024-01-07 10:53] LABS: TSH w/ Reflex to FT4 1.27 uIU/mL (0.47-4.68)
== END ==
PROVIDERS: PCP Family Medicine; Referring Provider Family Medicine; Visit Provider Family Medicine
DX: E78.2 Mixed hyperlipidemia (principal); I10 Essential (primary) hypertension; M06.9 Rheumatoid arthritis, unspecified; K52.831 Collagenous colitis
CPT/HCPCS: 36415; 80048; 80061; 84443; 85025

== ENCOUNTER → 2024-08-11 13:15 | Outpatient (CLI) | payer MEDICARE, OTHER, SELFPAY | PROVIDERS: PCP Family Medicine; Visit Provider Family Medicine | DX: L98.499 Non-pressure chronic ulcer of skin of other sites with unspecified severity (principal) | CPT/HCPCS: 87070; 87075; 87205 ==

== ENCOUNTER → 2024-08-13 11:15 | Outpatient (CLI) | payer MEDICARE, OTHER, SELFPAY | PROVIDERS: PCP Family Medicine; Visit Provider Physician Assistant Medical | DX: L98.499 Non-pressure chronic ulcer of skin of other sites with unspecified severity (principal) | CPT/HCPCS: 87070; 87075; 87205 ==

== ENCOUNTER → 2024-08-15 10:31 | Outpatient (CLI) | payer MEDICARE, OTHER, SELFPAY | PROVIDERS: PCP Physician Assistant Medical; Referring Provider Physician Assistant Medical; Visit Provider Physician Assistant | DX: S81.812A Laceration without foreign body, left lower leg, initial encounter (principal); S61.412A Laceration without foreign body of left hand, initial encounter | CPT/HCPCS: 11042; 99203; 99213 ==

== ENCOUNTER → 2024-08-22 15:15 | Outpatient (CLI) | payer MEDICARE, OTHER, SELFPAY | PROVIDERS: PCP Physician Assistant Medical; Referring Provider Physician Assistant Medical; Visit Provider Physician Assistant | DX: S81.812A Laceration without foreign body, left lower leg, initial encounter (principal); S61.412A Laceration without foreign body of left hand, initial encounter; L53.8 Other specified erythematous conditions; I10 Essential (primary) hypertension; M06.80 Other specified rheumatoid arthritis, unspecified site | CPT/HCPCS: 11042; 99213 ==

== ENCOUNTER → 2024-08-28 09:46 | Outpatient (CLI) | payer MEDICARE, OTHER, SELFPAY | PROVIDERS: PCP Physician Assistant Medical; Referring Provider Physician Assistant Medical; Visit Provider Surgery | DX: S81.812A Laceration without foreign body, left lower leg, initial encounter (principal); L53.8 Other specified erythematous conditions | CPT/HCPCS: 11042; 99213 ==

== ENCOUNTER → 2024-09-04 11:10 | Outpatient (CLI) | payer MEDICARE, OTHER, SELFPAY | PROVIDERS: PCP Physician Assistant Medical; Referring Provider Physician Assistant Medical; Visit Provider Surgery | DX: S81.812A Laceration without foreign body, left lower leg, initial encounter (principal); I87.2 Venous insufficiency (chronic) (peripheral); R60.0 Localized edema | CPT/HCPCS: 11042 ==

== ENCOUNTER → 2024-09-12 14:20 | Outpatient (CLI) | payer MEDICARE, OTHER, SELFPAY | LOC: WC 14:22 | PROVIDERS: PCP Physician Assistant Medical; Referring Provider Physician Assistant Medical; Visit Provider Physician Assistant | DX: S81.812A Laceration without foreign body, left lower leg, initial encounter (principal); M06.9 Rheumatoid arthritis, unspecified; M19.90 Unspecified osteoarthritis, unspecified site; I10 Essential (primary) hypertension | CPT/HCPCS: 15271; 99214; Q4196 ==

== ENCOUNTER → 2024-09-18 11:18 | Outpatient (CLI) | payer MEDICARE, OTHER, SELFPAY | PROVIDERS: PCP Physician Assistant Medical; Referring Provider Physician Assistant Medical; Visit Provider Surgery | DX: S81.812A Laceration without foreign body, left lower leg, initial encounter (principal); S61.511A Laceration without foreign body of right wrist, initial encounter; R60.0 Localized edema | CPT/HCPCS: 11042; 99213 ==

== ENCOUNTER → 2024-09-18 12:04 | Outpatient (CLI) | payer MEDICARE, OTHER, SELFPAY ==
--- NOTE | 2024-09-18 12:10 | DI.MRI.S_ITS ---
PROCEDURE: MR SHOULDER LT WO CON INDICATIONS: Worsenning shoulder pain and history rotator cuff tear TECHNIQUE: Noncontrast oblique coronal T2 fast spin echo with fat saturation, oblique sagittal T1 spin echo and T2 fast spin echo with fat saturation, axial T1 spin echo and T2 fast spin echo with fat saturation through the shoulder. COMPARISON: [facility], MR, MR SHOULDER LT WO CON, 07/25/2021, 13:38. FINDINGS: Image quality: Excellent. Rotator cuff: There is full-thickness rupture of distal supraspinatus at its insertion on the humeral head with up to 4.5 cm medial retraction of torn tendon fibers to the level of glenoid. Moderate grade articular surface partial-thickness tear involving distal infraspinatus at its insertion on the humeral head is seen extending to musculotendinous junction. Distal subscapularis tendinosis is seen. Sagittal images demonstrate ipyq-[id number]-dunctjjo supraspinatus muscle atrophy. Bones and bursae: Superior migration of humeral head in relation to glenoid is noted. Ptuu-dy-krxtcesn acromioclavicular joint osteoarthritic changes are seen with joint space narrowing and downward osteophyte formation. No acute fracture or dislocation. Type 2 acromion without os acromiale. Moderate joint effusion and subacromial subdeltoid bursal fluid, no loose bodies. Capsule and soft tissues: There is signal abnormality and fraying involving superior anterior glenoid labrum suggestive of superior anterior labral tear. The long head of the biceps tendon demonstrates normal location and morphology. IMPRESSION: 1. Full-thickness rupture of distal supraspinatus at its insertion on the humeral head with up to 4.5 cm medial retraction of torn tendon fibers to the level of glenoid. Low to moderate grade articular surface partial-thickness tear involving distal infraspinatus extending to musculotendinous junction. Distal subscapularis tendinosis. Mild to moderate supraspinatus muscle atrophy. 2. Superior migration of humeral head in relation to glenoid. Nkbe-[id number]-lowibggs acromioclavicular joint osteoarthritis. No acute fracture or dislocation. Moderate amount of joint effusion and subacromial subdeltoid bursal fluid, no loose bodies. 3. Suggestion of superior anterior glenoid labral tear. Dictated by: Nima Dye M.D. on 09/18/2024 at 15:26 Approved by: Nima Dye M.D. on 09/18/2024 at 15:28
== END ==
PROVIDERS: PCP Physician Assistant Medical; Referring Provider Family Medicine; Visit Provider Family Medicine
DX: M75.101 Unspecified rotator cuff tear or rupture of right shoulder, not specified as traumatic (principal); M12.811 Other specific arthropathies, not elsewhere classified, right shoulder; M19.012 Primary osteoarthritis, left shoulder; M75.122 Complete rotator cuff tear or rupture of left shoulder, not specified as traumatic
CPT/HCPCS: 73221

== ENCOUNTER → 2024-09-25 10:50 | Outpatient (CLI) | payer MEDICARE, OTHER, SELFPAY | LOC: WC 10:51 | PROVIDERS: PCP Physician Assistant Medical; Referring Provider Physician Assistant Medical; Visit Provider Surgery | DX: S81.812A Laceration without foreign body, left lower leg, initial encounter (principal); S61.511A Laceration without foreign body of right wrist, initial encounter; R60.0 Localized edema | CPT/HCPCS: 11042 ==

== ENCOUNTER → 2024-10-02 10:42 | Outpatient (CLI) | payer MEDICARE, OTHER, SELFPAY | PROVIDERS: PCP Physician Assistant Medical; Referring Provider Physician Assistant Medical; Visit Provider Surgery | DX: S81.812A Laceration without foreign body, left lower leg, initial encounter (principal); S61.511D Laceration without foreign body of right wrist, subsequent encounter; G60.9 Hereditary and idiopathic neuropathy, unspecified; L97.522 Non-pressure chronic ulcer of other part of left foot with fat layer exposed; S41.111A Laceration without foreign body of right upper arm, initial encounter; L84 Corns and callosities | CPT/HCPCS: 11042; 99213 ==

== ENCOUNTER → 2024-10-09 10:47 | Outpatient (CLI) | payer MEDICARE, OTHER, SELFPAY | PROVIDERS: PCP Physician Assistant Medical; Referring Provider Physician Assistant Medical; Visit Provider Surgery | DX: S81.812A Laceration without foreign body, left lower leg, initial encounter (principal); Z87.2 Personal history of diseases of the skin and subcutaneous tissue; S51.811A Laceration without foreign body of right forearm, initial encounter; L84 Corns and callosities; L98.8 Other specified disorders of the skin and subcutaneous tissue; R60.0 Localized edema | CPT/HCPCS: 11042; 97597; 99213 ==

== ENCOUNTER → 2024-10-16 10:50 | Outpatient (CLI) | payer MEDICARE, OTHER, SELFPAY | LOC: WC 10:52 | PROVIDERS: PCP Physician Assistant Medical; Referring Provider Physician Assistant Medical; Visit Provider Surgery | DX: S81.812A Laceration without foreign body, left lower leg, initial encounter (principal); S51.811D Laceration without foreign body of right forearm, subsequent encounter; R60.0 Localized edema | CPT/HCPCS: 11042 ==

== ENCOUNTER → 2024-10-23 14:32 | Outpatient (CLI) | payer MEDICARE, OTHER, SELFPAY | LOC: WC 10-29 14:34 | PROVIDERS: PCP Physician Assistant Medical; Referring Provider Physician Assistant Medical; Visit Provider Surgery | DX: S81.812A Laceration without foreign body, left lower leg, initial encounter (principal); L98.8 Other specified disorders of the skin and subcutaneous tissue; R60.0 Localized edema | CPT/HCPCS: 11042 ==

== ENCOUNTER → 2024-11-07 11:11 | Outpatient (CLI) | payer MEDICARE, OTHER, SELFPAY | LOC: WC 11:18 | PROVIDERS: PCP Physician Assistant Medical; Referring Provider Physician Assistant Medical; Visit Provider Surgery | DX: L97.822 Non-pressure chronic ulcer of other part of left lower leg with fat layer exposed (principal); I87.2 Venous insufficiency (chronic) (peripheral); R60.0 Localized edema; S51.811A Laceration without foreign body of right forearm, initial encounter; R23.3 Spontaneous ecchymoses; G62.9 Polyneuropathy, unspecified; I10 Essential (primary) hypertension; M06.9 Rheumatoid arthritis, unspecified | CPT/HCPCS: 11042; 99213 ==

== ENCOUNTER → 2024-11-20 14:06 | Outpatient (CLI) | payer MEDICARE, OTHER, SELFPAY | PROVIDERS: PCP Physician Assistant Medical; Referring Provider Physician Assistant Medical; Visit Provider Surgery | DX: S81.812A Laceration without foreign body, left lower leg, initial encounter (principal); S41.111A Laceration without foreign body of right upper arm, initial encounter; S51.811D Laceration without foreign body of right forearm, subsequent encounter; R23.3 Spontaneous ecchymoses; R60.0 Localized edema; R21 Rash and other nonspecific skin eruption; L94.9 Localized connective tissue disorder, unspecified | CPT/HCPCS: 11042; 99213 ==

== ENCOUNTER → 2025-02-10 13:17 | Outpatient (CLI) | payer MEDICARE, OTHER, SELFPAY ==
[2025-02-10 19:07] LABS: Alanine Aminotransferase 22 IU/L (<35); Albumin 4.1 g/dL (3.5-5.0); Albumin Globulin Ratio 1.6 (1.0-2.8); Alkaline Phosphatase 115 U/L (38-126); Blood Urea Nitrogen 23 mg/dL (7-17); Calcium 8.8 mg/dL (8.4-10.2); Carbon Dioxide 30 mmol/L (22-32); Chloride 100 mmol/L (98-107); Estimated Glomerular Filt Rate > 60 mL/min (>60); Globulin 2.6 g/dL (1.7-4.1); Glucose 101 mg/dL (70-99); HEMOLYSIS 16 (0-50); Potassium 3.7 mmol/L (3.4-5.1); Sodium 136 mmol/L (137-145); Total Protein 6.7 g/dL (6.3-8.2)
[2025-02-10 19:14] LABS: Add Manual Diff / Slide Review NO; Hematocrit 43.9 % (36-46); Hemoglobin 14.8 g/dL (12.0-16.0); Lymphocytes Absolute Auto 1800 /uL (1100-4500); Mean Corpuscular HGB Conc 33.8 % (30-36); Mean Corpuscular Hemoglobin 29.7 PG (26-34); Mean Corpuscular Volume 87.9 fL (80-100); Platelet Count 247 X10^3/uL (150-400)
== END ==
PROVIDERS: PCP Physician Assistant Medical; Visit Provider Physician Assistant Medical
DX: Z51.81 Encounter for therapeutic drug level monitoring (principal); Z79.1 Long term (current) use of non-steroidal anti-inflammatories (NSAID)
CPT/HCPCS: 80053; 85025